=== PATIENT | female | born 1965 | race Caucasian/White ===

== ENCOUNTER 2016-11-13 14:10 | Emergency (ER) | payer MEDICAID ==
[~2016-11-13] VITALS: Ht 165.1 cm; Wt 102.0 kg
[2016-11-13] MEDS ORDERED: ALBU18HF INH (14:23)
[2016-11-13] MEDS ORDERED: MONT4GRA2 PO (14:23)
[2016-11-13] MEDS ORDERED: LORazepam 1MG TABLET PO ONE (14:30)
[2016-11-13 14:49] LABS: HEMOGLOBIN 13.7 g/dL (11.7-16.4)
[2016-11-13] MEDS ORDERED: LORazepam 1MG TABLET ONE (14:54)
[2016-11-13 15:16] LABS: BLOOD UREA NITROGEN 3 mg/dL (7-18)
[2016-11-13 15:24] LABS: IS PT STATUS REG ER OR PRE ER? YES
[2016-11-13 15:35] LABS: HCG UR OBC PASS
[2016-11-13 16:41] VITALS: BP 155/99
== END 2016-11-13 17:01 | disposition home or self-care (01) ==
LOC: ED 14:59
DX: J20.8 Acute bronchitis due to other specified organisms (principal); B97.89 Other viral agents as the cause of diseases classified elsewhere; I10 Essential (primary) hypertension
CPT/HCPCS: 36415; 71020; 80048; 81025; 82040; 84484; 85025; 93005

== ENCOUNTER 2017-07-28 10:31 | Inpatient (IN) | payer MEDICAID ==
[~2017-07-28] VITALS: Ht 165.1 cm; Wt 95.3 kg
[~2017-07-28 10:31] MED LIST: ALBU18HF INH; MONT4GRA2 PO
[2017-07-28 12:23] LABS: BASOPHILS # (AUTO) 0.04 x10^3/uL (0-0.1); BASOPHILS % (AUTO) 1 % (0-1); EOSINOPHILS # (AUTO) 0.14 x10^3/uL (0-0.4); EOSINOPHILS % (AUTO) 2 % (1-7); LYMPHOCYTES # (AUTO) 1.87 x10^3/uL (1-3.4); LYMPHOCYTES % (AUTO) 20 % (22-44); MD NO; MEAN CORPUSCULAR HEMOGLOBIN 30.9 pg (27.0-34.8); MEAN CORPUSCULAR HGB CONC 33.7 g/dL (32.4-35.8); MEAN CORPUSCULAR VOLUME 91.6 fL (80-100); MEAN PLATELET VOLUME 8.4 fL (7.4-10.4); MONOCYTES # (AUTO) 0.58 x10^3/uL (0.2-0.8); MONOCYTES % (AUTO) 6 % (2-9); NEUTROPHILS # (AUTO) 6.66 x10^3/uL (1.8-6.8); NEUTROPHILS % (AUTO) 72 % (42-75); PLATELET COUNT 331 x10^3/uL (130-400); RED BLOOD COUNT 4.82 x10^6/uL (3.82-5.3); RED CELL DISTRIBUTION WIDTH 13.2 % (9.6-15.2)
[2017-07-28] MEDS ORDERED: SODIUM CHLORIDE FLUSH 10ML SYR IVF ONE (12:30)
[2017-07-28] MEDS ORDERED: SODIUM CHLORIDE 0.9% 1,000ML IVBOLUS ONE (12:30)
[2017-07-28] MEDS ORDERED: ONDANSETRON 2MG/ML, 2ML IVPush ONE (12:30)
[2017-07-28] MEDS ORDERED: MORPHINE SULFATE 4 MG/ML, 1ML IVPush PRN (12:30)
[2017-07-28 12:31] LABS: ALANINE AMINOTRANSFERASE 51 U/L (12-78); ALBUMIN 3.4 g/dL (3.4-5.0); ANION GAP 9 mmol/L (5-15); CALCIUM 9.1 mg/dL (8.5-10.1); CHLORIDE 109 mmol/L (98-107); CREATININE 0.89 mg/dL (0.55-1.02)
[2017-07-28 12:36] LABS: ALKALINE PHOSPHATASE 105 U/L (45-117); BILIRUBIN,TOTAL 1.4 mg/dL (0.2-1.0); TOTAL PROTEIN 7.1 g/dL (6.4-8.2); TROPONIN I 0.016 ng/mL (0.000-0.045)
[2017-07-28] MEDS ORDERED: LISI-167 PO (12:55)
[2017-07-28] MEDS ORDERED: HYDR50TA13 PO (12:55)
[2017-07-28] MEDS ORDERED: MORPHINE SULFATE 4 MG/ML, 1ML ONE (13:23)
[2017-07-28] MEDS ORDERED: ONDANSETRON 2MG/ML, 2ML ONE (13:23)
[2017-07-28] MEDS ORDERED: OMNIPAQUE 350 MG/ML, 100ML BOTTLE ONE (14:07)
[2017-07-28] MEDS ORDERED: ASPIRIN 81 MG TABLET CHEW ONE (17:06)
[2017-07-28] MEDS ORDERED: FUROSEMIDE 20 MG/2 ML IV ONE (17:30)
[2017-07-28] MEDS ORDERED: ASPIRIN 81 MG TABLET CHEW PO ONE (17:30)
[2017-07-28] MEDS ORDERED: FUROSEMIDE 40 MG/4 ML ONE (17:32)
[2017-07-28] MEDS ORDERED: GABA100C PO (18:20)
[2017-07-28 18:35] VITALS: BP 132/97
[2017-07-28] MEDS ORDERED: BISACODYL 10 MG SUPP PR PRN (19:00)
[2017-07-28] MEDS ORDERED: ONDANSETRON 2MG/ML, 2ML IVPush PRN (19:00)
[2017-07-28] MEDS ORDERED: POLYETHYLENE GLYCOL 17 GM PACKET PO PRN (19:00)
[2017-07-28 19:28] LABS: FREE T4 (FREE THYROXINE) 1.32 ng/dL (0.76-1.46); THYROID STIMULATING HORMONE 1.43 mIU/L (0.358-3.740)
[2017-07-28] MEDS: ACETAMINOPHEN 325 MG TABLET PO PRN (20:13)
[2017-07-28] MEDS: POTASSIUM CHLORIDE 20 MEQ TAB.ER.PRT PO SCH (20:13)
[2017-07-28] MEDS: GABAPENTIN 100 MG CAPSULE PO SCH (20:13)
[2017-07-28] MEDS: HEPARIN 5,000 UNITS/ML, 1ML SQ SCH (20:14)
[2017-07-28] MEDS: CARVEDILOL 6.25 MG TABLET PO SCH (20:14)
[2017-07-28] MEDS: SODIUM CHLORIDE FLUSH 10ML SYR IVF SCH (20:14)
[2017-07-29 03:36] VITALS: BP 105/60
[2017-07-29] MEDS: ASPIRIN 81 MG TABLET EC PO SCH (04:41)
[2017-07-29] MEDS: CARVEDILOL 6.25 MG TABLET PO SCH ×2 (04:41→17:06)
[2017-07-29] MEDS: HEPARIN 5,000 UNITS/ML, 1ML SQ SCH ×3 (04:42→20:20)
[2017-07-29 05:37] LABS: BASOPHILS # (AUTO) 0.05 x10^3/uL (0-0.1); BASOPHILS % (AUTO) 1 % (0-1); EOSINOPHILS # (AUTO) 0.31 x10^3/uL (0-0.4); EOSINOPHILS % (AUTO) 5 % (1-7); LYMPHOCYTES % (AUTO) 30 % (22-44); MD NO; MEAN CORPUSCULAR HEMOGLOBIN 30.6 pg (27.0-34.8); MEAN CORPUSCULAR HGB CONC 33.7 g/dL (32.4-35.8); MEAN CORPUSCULAR VOLUME 90.7 fL (80-100); MEAN PLATELET VOLUME 8.6 fL (7.4-10.4); MONOCYTES # (AUTO) 0.38 x10^3/uL (0.2-0.8); MONOCYTES % (AUTO) 6 % (2-9); NEUTROPHILS # (AUTO) 3.64 x10^3/uL (1.8-6.8); NEUTROPHILS % (AUTO) 58 % (42-75); PLATELET COUNT 274 x10^3/uL (130-400); RED BLOOD COUNT 4.17 x10^6/uL (3.82-5.3); RED CELL DISTRIBUTION WIDTH 13.5 % (9.6-15.2)
[2017-07-29 05:41] LABS: CHLORIDE 109 mmol/L (98-107)
[2017-07-29 05:48] LABS: ALANINE AMINOTRANSFERASE 46 U/L (12-78); ALBUMIN 2.9 g/dL (3.4-5.0); ALKALINE PHOSPHATASE 91 U/L (45-117); ANION GAP 5 mmol/L (5-15); BILIRUBIN,TOTAL 0.9 mg/dL (0.2-1.0); CALCIUM 8.5 mg/dL (8.5-10.1); CHOL/HDL RATIO 3.5; CHOLESTEROL, TOTAL 144 mg/dL (140-239); CREATININE 0.94 mg/dL (0.55-1.02); HDL CHOL % 28 % (28-40); HDL CHOLESTEROL (DIRECT) 41 mg/dL (40-60); LDL CHOLESTEROL,CALCULATED 80 mg/dL (54-169); TRIGLYCERIDES 115 mg/dL (50-200); VLDL CHOLESTEROL 23 mg/dL (0-25)
[2017-07-29 08:45] VITALS: BP 108/75
[2017-07-29] MEDS: GABAPENTIN 100 MG CAPSULE PO SCH ×2 (09:00→20:20)
[2017-07-29] MEDS: LISINOPRIL 10 MG TABLET PO SCH (09:00)
[2017-07-29] MEDS: FUROSEMIDE 40 MG/4 ML IV SCH ×2 (09:10→17:05)
[2017-07-29] MEDS: SODIUM CHLORIDE FLUSH 10ML SYR IVF SCH ×2 (09:10→20:20)
[2017-07-29] MEDS: POTASSIUM CHLORIDE 20 MEQ TAB.ER.PRT PO SCH ×2 (09:10→17:05)
[2017-07-29] MEDS: hydrOXyzine 50MG TABLET PO SCH (09:11)
[2017-07-29] MEDS: SENNA/DOCUSATE TABLET PO SCH (09:11)
[2017-07-29] MEDS: SPIRONOLACTONE 25 MG TABLET PO SCH (12:26)
[2017-07-29 13:37] VITALS: BP 114/80
[2017-07-29] MEDS: ACETAMINOPHEN 325 MG TABLET PO PRN (13:44)
[2017-07-29 15:12] VITALS: BP 123/82
[2017-07-29 19:47] VITALS: BP 111/75
[2017-07-30] MEDS: ACETAMINOPHEN 325 MG TABLET PO PRN (01:17)
[2017-07-30 02:00] VITALS: BP 118/79
[2017-07-30] MEDS: CARVEDILOL 6.25 MG TABLET PO SCH ×2 (05:14→17:32)
[2017-07-30] MEDS: ASPIRIN 81 MG TABLET EC PO SCH (05:15)
[2017-07-30] MEDS: HEPARIN 5,000 UNITS/ML, 1ML SQ SCH ×3 (05:15→21:56)
[2017-07-30 06:11] LABS: CHLORIDE 108 mmol/L (98-107)
[2017-07-30 06:33] LABS: ANION GAP 10 mmol/L (5-15); CALCIUM 8.5 mg/dL (8.5-10.1); CREATININE 0.88 mg/dL (0.55-1.02)
[2017-07-30] MEDS: SODIUM CHLORIDE FLUSH 10ML SYR IVF SCH ×2 (07:53→21:00)
[2017-07-30] MEDS: GABAPENTIN 100 MG CAPSULE PO SCH ×2 (07:53→21:56)
[2017-07-30] MEDS: SENNA/DOCUSATE TABLET PO SCH (07:53)
[2017-07-30] MEDS: POTASSIUM CHLORIDE 20 MEQ TAB.ER.PRT PO SCH ×2 (07:53→17:32)
[2017-07-30] MEDS: FUROSEMIDE 40 MG/4 ML IV SCH (07:53)
[2017-07-30] MEDS: SPIRONOLACTONE 25 MG TABLET PO SCH (07:53)
[2017-07-30] MEDS: LISINOPRIL 10 MG TABLET PO SCH (07:54)
[2017-07-30] MEDS: hydrOXyzine 50MG TABLET PO SCH (07:54)
[2017-07-30 08:41] VITALS: BP 126/88
[2017-07-30] MEDS ORDERED: IBUPROFEN 200 MG TABLET PO PRN (09:00)
[2017-07-30 09:35] LABS: TROPONIN I < 0.015 ng/mL (0.000-0.045)
[2017-07-30 14:27] VITALS: BP 133/71
[2017-07-30 19:59] VITALS: BP 130/88
[2017-07-30] MEDS ORDERED: DIPHENHYDRAMINE 50 MG CAPSULE ONE (21:52)
[2017-07-30] MEDS ORDERED: DIPHENHYDRAMINE 25 MG CAPSULE PO PRN (22:00)
[2017-07-31] MEDS ORDERED: TEMAZEPAM 15 MG CAPSULE PO PRN (00:30)
[2017-07-31 05:39] VITALS: BP 144/101
[2017-07-31] MEDS: CARVEDILOL 6.25 MG TABLET PO SCH (05:43)
[2017-07-31] MEDS: HEPARIN 5,000 UNITS/ML, 1ML SQ SCH ×2 (05:43→10:11)
[2017-07-31] MEDS: ASPIRIN 81 MG TABLET EC PO SCH (05:43)
[2017-07-31] MEDS ORDERED: REGADENOSON 0.4 MG/5 ML SYRINGE ONE (08:31)
[2017-07-31] MEDS ORDERED: FUROSEMIDE 40 MG TABLET PO SCH (09:00)
[2017-07-31] MEDS: hydrOXyzine 50MG TABLET PO SCH (10:12)
[2017-07-31] MEDS: LISINOPRIL 10 MG TABLET PO SCH (10:12)
[2017-07-31] MEDS: GABAPENTIN 100 MG CAPSULE PO SCH (10:12)
[2017-07-31] MEDS: SPIRONOLACTONE 25 MG TABLET PO SCH (10:12)
[2017-07-31] MEDS: POTASSIUM CHLORIDE 20 MEQ TAB.ER.PRT PO SCH (10:13)
[2017-07-31] MEDS: SENNA/DOCUSATE TABLET PO SCH (10:13)
[2017-07-31] MEDS: SODIUM CHLORIDE FLUSH 10ML SYR IVF SCH (10:13)
[2017-07-31] MEDS ORDERED: FURO40TA6 PO (12:35)
[2017-07-31] MEDS ORDERED: LISI-167 PO (12:35)
[2017-07-31] MEDS ORDERED: SPIR25TA PO (12:35)
[2017-07-31] MEDS ORDERED: CARV6.2512 PO (12:35)
[2017-07-31 13:04] VITALS: BP 134/88
== END 2017-07-31 14:15 | disposition home or self-care (01) | DRG 291 ==
LOC: ED 12:21 → EDIP 17:17 → 5SO 19:07
PROVIDERS: ADMIT Surgery; ATTEND Internal Medicine
DX: I11.0 Hypertensive heart disease with heart failure (principal); I46.9 Cardiac arrest, cause unspecified; I42.9 Cardiomyopathy, unspecified; E44.1 Mild protein-calorie malnutrition; I50.21 Acute systolic (congestive) heart failure; I48.91 Unspecified atrial fibrillation; E66.9 Obesity, unspecified; Z68.35 Body mass index [BMI] 35.0-35.9, adult; F15.90 Other stimulant use, unspecified, uncomplicated; F17.210 Nicotine dependence, cigarettes, uncomplicated; F41.1 Generalized anxiety disorder; I34.0 Nonrheumatic mitral (valve) insufficiency; Z79.82 Long term (current) use of aspirin; Z82.3 Family history of stroke; Z82.49 Family history of ischemic heart disease and other diseases of the circulatory system; Z83.3 Family history of diabetes mellitus
CPT/HCPCS: 36415; 71010; 71275; 78452; 80048; 80053; 80061; 83690; 83735; 83880; 84439; 84443; 84484; 85025; 85379; 93005; 93017; 93306; 96361; 96374; 96375; J1644; J1940; J2405; J2785; Q9967; A9502; C9898; J7030; Q0163

== ENCOUNTER → 2017-08-21 | Outpatient (CLI) | payer MEDICAID ==
[~2017-08-21] MED LIST changes: +CARV6.2512 PO; +FURO40TA6 PO; +GABA100C PO; +HYDR50TA13 PO; +LISI-167 PO; +SPIR25TA PO
== END | disposition home or self-care (01) ==
LOC: CFH 13:56
PROVIDERS: ATTEND Internal Medicine Cardiovascular Disease
DX: I08.1 Rheumatic disorders of both mitral and tricuspid valves (principal); I10 Essential (primary) hypertension; I42.9 Cardiomyopathy, unspecified; F41.9 Anxiety disorder, unspecified
CPT/HCPCS: 93306

== ENCOUNTER 2017-11-27 14:56 | Emergency (ER) | payer MEDICAID ==
[~2017-11-27] VITALS: Ht 165.1 cm; Wt 105.0 kg
[2017-11-27] MEDS ORDERED: CYCL7.5T25 PO (15:12)
[2017-11-27 15:40] LABS: BASOPHILS # (AUTO) 0.04 x10^3/uL (0-0.1); BASOPHILS % (AUTO) 1 % (0-1); EOSINOPHILS # (AUTO) 0.55 x10^3/uL (0-0.4); EOSINOPHILS % (AUTO) 7 % (1-7); LYMPHOCYTES # (AUTO) 1.77 x10^3/uL (1-3.4); LYMPHOCYTES % (AUTO) 22 % (22-44); MD NO; MEAN CORPUSCULAR HEMOGLOBIN 29.8 pg (27.0-34.8); MEAN CORPUSCULAR HGB CONC 33.8 g/dL (32.4-35.8); MEAN PLATELET VOLUME 7.4 fL (7.4-10.4); MONOCYTES # (AUTO) 0.47 x10^3/uL (0.2-0.8); MONOCYTES % (AUTO) 6 % (2-9); NEUTROPHILS # (AUTO) 5.23 x10^3/uL (1.8-6.8); NEUTROPHILS % (AUTO) 65 % (42-75); PLATELET COUNT 299 x10^3/uL (130-400); RED BLOOD COUNT 4.41 x10^6/uL (3.82-5.3); RED CELL DISTRIBUTION WIDTH 14.6 % (9.6-15.2)
[2017-11-27 15:52] LABS: ALBUMIN 3.6 g/dL (3.4-5.0); CALCIUM 8.4 mg/dL (8.5-10.1); CHLORIDE 110 mmol/L (98-107)
[2017-11-27 16:00] LABS: ALANINE AMINOTRANSFERASE 41 U/L (12-78); ALKALINE PHOSPHATASE 72 U/L (45-117); ANION GAP 8 mmol/L (5-15); BILIRUBIN,TOTAL 0.3 mg/dL (0.2-1.0); TROPONIN I < 0.015 ng/mL (0.000-0.045)
[2017-11-27 16:26] VITALS: BP 116/74
== END 2017-11-27 16:28 | disposition home or self-care (01) ==
LOC: ED 16:15
DX: R07.89 Other chest pain (principal); F41.1 Generalized anxiety disorder; I11.0 Hypertensive heart disease with heart failure; I50.9 Heart failure, unspecified; Z87.891 Personal history of nicotine dependence
CPT/HCPCS: 36415; 71045; 80053; 84484; 85025; 93005; 99285

== ENCOUNTER 2018-01-30 06:34 | Emergency (ER) | payer MEDICAID ==
[~2018-01-30] VITALS: Ht 165.1 cm; Wt 109.8 kg
[~2018-01-30 06:34] MED LIST changes: +CYCL7.5T25 PO
[2018-01-30 07:44] LABS: BASOPHILS # (AUTO) 0.04 x10^3/uL (0-0.1); BASOPHILS % (AUTO) 1 % (0-1); EOSINOPHILS # (AUTO) 0.22 x10^3/uL (0-0.4); EOSINOPHILS % (AUTO) 4 % (1-7); LYMPHOCYTES # (AUTO) 1.81 x10^3/uL (1-3.4); LYMPHOCYTES % (AUTO) 32 % (22-44); MD NO; MEAN CORPUSCULAR HEMOGLOBIN 30.2 pg (27.0-34.8); MEAN CORPUSCULAR HGB CONC 34.5 g/dL (32.4-35.8); MEAN CORPUSCULAR VOLUME 87.8 fL (80-100); MONOCYTES # (AUTO) 0.48 x10^3/uL (0.2-0.8); MONOCYTES % (AUTO) 8 % (2-9); NEUTROPHILS # (AUTO) 3.18 x10^3/uL (1.8-6.8); NEUTROPHILS % (AUTO) 56 % (42-75); PLATELET COUNT 317 x10^3/uL (130-400); RED BLOOD COUNT 4.63 x10^6/uL (3.82-5.3); RED CELL DISTRIBUTION WIDTH 12.9 % (9.6-15.2)
[2018-01-30 08:13] LABS: ALANINE AMINOTRANSFERASE 86 U/L (12-78); ALBUMIN 3.8 g/dL (3.4-5.0); ANION GAP 5 mmol/L (5-15); CALCIUM 8.8 mg/dL (8.5-10.1); CHLORIDE 106 mmol/L (98-107); CREATININE 1.04 mg/dL (0.55-1.02)
[2018-01-30 08:17] LABS: ALKALINE PHOSPHATASE 69 U/L (45-117); BILIRUBIN,TOTAL 0.4 mg/dL (0.2-1.0); TOTAL PROTEIN 7.4 g/dL (6.4-8.2); TROPONIN I < 0.015 ng/mL (0.000-0.045)
[2018-01-30 09:05] VITALS: BP 138/82
== END 2018-01-30 09:07 | disposition home or self-care (01) ==
LOC: ED 07:45
DX: R74.8 Abnormal levels of other serum enzymes (principal); R16.0 Hepatomegaly, not elsewhere classified; I50.9 Heart failure, unspecified; E66.9 Obesity, unspecified; I11.0 Hypertensive heart disease with heart failure
CPT/HCPCS: 36415; 71046; 76700; 80053; 83880; 84484; 85025; 93005; 99285

== ENCOUNTER 2018-05-07 09:25 | Inpatient (IN) | payer MEDICAID ==
[~2018-05-07] VITALS: Ht 165.1 cm; Wt 106.9 kg
[2018-05-07] MEDS ORDERED: SODIUM CHLORIDE FLUSH 10ML SYR IVF ONE (10:00)
[2018-05-07] MEDS ORDERED: LORazepam 2 MG/ML, 1ML IVPush ONE (10:00)
[2018-05-07] MEDS ORDERED: ASPIRIN 81 MG TABLET CHEW PO ONE (10:00)
[2018-05-07] MEDS ORDERED: NITROGLYCERIN SINGLE TAB 0.4 MG SL ONE ×2 (10:00→10:09)
[2018-05-07] MEDS ORDERED: ASPIRIN 81 MG TABLET CHEW ONE (10:09)
[2018-05-07 10:10] LABS: BASOPHILS # (AUTO) 0.05 x10^3/uL (0-0.1); BASOPHILS % (AUTO) 1 % (0-1); EOSINOPHILS # (AUTO) 0.32 x10^3/uL (0-0.4); EOSINOPHILS % (AUTO) 5 % (1-7); LYMPHOCYTES # (AUTO) 1.79 x10^3/uL (1-3.4); LYMPHOCYTES % (AUTO) 30 % (22-44); MD NO; MEAN CORPUSCULAR HEMOGLOBIN 31.2 pg (27.0-34.8); MEAN CORPUSCULAR HGB CONC 34.3 g/dL (32.4-35.8); MEAN CORPUSCULAR VOLUME 90.9 fL (80-100); MEAN PLATELET VOLUME 7.3 fL (7.4-10.4); MONOCYTES # (AUTO) 0.45 x10^3/uL (0.2-0.8); MONOCYTES % (AUTO) 7 % (2-9); NEUTROPHILS # (AUTO) 3.45 x10^3/uL (1.8-6.8); NEUTROPHILS % (AUTO) 57 % (42-75); PLATELET COUNT 284 x10^3/uL (130-400); RED BLOOD COUNT 4.22 x10^6/uL (3.82-5.3)
[2018-05-07] MEDS ORDERED: LORazepam 2 MG/ML, 1ML ONE (10:10)
[2018-05-07 10:20] LABS: INTERNATIONAL NORMALIZED RATIO 0.97 (0.93-1.1)
[2018-05-07 10:23] LABS: ALANINE AMINOTRANSFERASE 85 U/L (12-78); ALBUMIN 3.3 g/dL (3.4-5.0); ANION GAP 7 mmol/L (5-15); CALCIUM 8.2 mg/dL (8.5-10.1); CHLORIDE 110 mmol/L (98-107); CREATININE 0.93 mg/dL (0.55-1.02)
[2018-05-07 10:27] LABS: ALKALINE PHOSPHATASE 69 U/L (45-117); BILIRUBIN,TOTAL 0.3 mg/dL (0.2-1.0); TOTAL PROTEIN 6.9 g/dL (6.4-8.2); TROPONIN I < 0.015 ng/mL (0.000-0.045)
[2018-05-07] MEDS ORDERED: OMNIPAQUE 350 MG/ML, 100ML BOTTLE ONE (11:45)
[2018-05-07] MEDS ORDERED: morphine SULFATE 10 MG/ML, 1ML IVPush PRN (12:30)
[2018-05-07] MEDS ORDERED: ACETAMINOPHEN 325 MG TABLET PO PRN (12:30)
[2018-05-07] MEDS: hydrOXyzine 50MG TABLET PO SCH (12:30)
[2018-05-07] MEDS ORDERED: ONDANSETRON ODT 4 MG PO PRN (12:30)
[2018-05-07 12:35] VITALS: BP 125/84
[2018-05-07] MEDS: ENOXAPARIN 40 MG/0.4 ML SQ SCH (13:37)
[2018-05-07 13:48] LABS: TROPONIN I < 0.015 ng/mL (0.000-0.045)
[2018-05-07 15:24] LABS: MICROSCOPIC NOT IND
[2018-05-07] MEDS ORDERED: ALBUTEROL SULFATE 2.5 MG/3 ML NPPB PRN (15:30)
[2018-05-07] MEDS: FUROSEMIDE 40 MG/4 ML IV SCH (16:59)
[2018-05-07 17:28] LABS: AMPHETAMINE SCREEN, URINE Positive (Negative); BARBITURATE SCREEN, URINE Positive (Negative); BENZODIAZEPINE SCREEN, URINE Negative (Negative); CANNABINOID SCREEN, URINE Negative (Negative); COCAINE SCREEN, URINE Negative (Negative); METHADONE SCREEN, URINE Negative (Negative); OPIATE SCREEN, URINE Negative (Negative)
[2018-05-07] MEDS: CARVEDILOL 6.25 MG TABLET PO SCH (17:59)
[2018-05-07 18:03] LABS: TROPONIN I < 0.015 ng/mL (0.000-0.045)
[2018-05-07] MEDS: GABAPENTIN 100 MG CAPSULE PO SCH (20:28)
[2018-05-07 20:33] VITALS: BP 103/70
[2018-05-08 00:54] VITALS: BP 108/74
[2018-05-08 05:05] LABS: BASOPHILS # (AUTO) 0.03 x10^3/uL (0-0.1); BASOPHILS % (AUTO) 1 % (0-1); EOSINOPHILS # (AUTO) 0.32 x10^3/uL (0-0.4); EOSINOPHILS % (AUTO) 6 % (1-7); LYMPHOCYTES # (AUTO) 1.95 x10^3/uL (1-3.4); LYMPHOCYTES % (AUTO) 35 % (22-44); MD NO; MEAN CORPUSCULAR HEMOGLOBIN 31.2 pg (27.0-34.8); MEAN CORPUSCULAR HGB CONC 34.3 g/dL (32.4-35.8); MEAN CORPUSCULAR VOLUME 91.2 fL (80-100); MEAN PLATELET VOLUME 7.2 fL (7.4-10.4); MONOCYTES # (AUTO) 0.44 x10^3/uL (0.2-0.8); MONOCYTES % (AUTO) 8 % (2-9); NEUTROPHILS # (AUTO) 2.88 x10^3/uL (1.8-6.8); NEUTROPHILS % (AUTO) 51 % (42-75); PLATELET COUNT 277 x10^3/uL (130-400); RED BLOOD COUNT 4.15 x10^6/uL (3.82-5.3); RED CELL DISTRIBUTION WIDTH 13.2 % (9.6-15.2)
[2018-05-08 05:17] LABS: ANION GAP 5 mmol/L (5-15); CALCIUM 8.4 mg/dL (8.5-10.1); CHLORIDE 108 mmol/L (98-107)
[2018-05-08] MEDS: CARVEDILOL 6.25 MG TABLET PO SCH (05:21)
[2018-05-08 05:22] LABS: CHOL/HDL RATIO 4.2; CHOLESTEROL, TOTAL 195 mg/dL (140-239); CREATININE 1.01 mg/dL (0.55-1.02); HDL CHOL % 24 % (28-40); HDL CHOLESTEROL (DIRECT) 46 mg/dL (40-60); LDL CHOLESTEROL,CALCULATED 101 mg/dL (54-169); LDL/HDL RATIO 2.2 (0.5-3.0); TRIGLYCERIDES 238 mg/dL (50-200); VLDL CHOLESTEROL 48 mg/dL (0-25)
[2018-05-08] MEDS: FUROSEMIDE 40 MG/4 ML IV SCH (07:57)
[2018-05-08 08:10] VITALS: BP 114/60
[2018-05-08] MEDS: GABAPENTIN 100 MG CAPSULE PO SCH (08:30)
[2018-05-08] MEDS: hydrOXyzine 50MG TABLET PO SCH (08:30)
[2018-05-08] MEDS ORDERED: SPIRONOLACTONE 25 MG TABLET PO SCH (09:00)
[2018-05-08] MEDS ORDERED: LISINOPRIL 5 MG TABLET PO SCH (09:00)
[2018-05-08] MEDS ORDERED: POTASSIUM CHLORIDE 20 MEQ TAB.ER.PRT PO SCH (09:00)
[2018-05-08] MEDS ORDERED: CYCLOBENZAPRINE 10 MG TABLET PO SCH (09:00)
[2018-05-08] MEDS ORDERED: LISI2.5T PO (09:37)
[2018-05-08] MEDS ORDERED: FURO20TA3 PO (09:37)
[2018-05-08] MEDS: ENOXAPARIN 40 MG/0.4 ML SQ SCH (12:00)
== END 2018-05-08 12:40 | disposition home or self-care (01) | DRG 292 ==
LOC: ED 11:39 → EDIP 11:40 → ED 12:12 → 5SO 12:42
PROVIDERS: ADMIT Hospitalist; ATTEND Hospitalist
DX: I11.0 Hypertensive heart disease with heart failure (principal); E44.1 Mild protein-calorie malnutrition; I42.9 Cardiomyopathy, unspecified; F41.9 Anxiety disorder, unspecified; R07.89 Other chest pain; I50.23 Acute on chronic systolic (congestive) heart failure; Z68.39 Body mass index [BMI] 39.0-39.9, adult; J70.4 Drug-induced interstitial lung disorders, unspecified; F15.90 Other stimulant use, unspecified, uncomplicated; R74.0 Nonspecific elevation of levels of transaminase and lactic acid dehydrogenase [LDH]; E83.51 Hypocalcemia; E66.01 Morbid (severe) obesity due to excess calories; Z82.3 Family history of stroke; Z83.3 Family history of diabetes mellitus; Z87.891 Personal history of nicotine dependence; Z79.899 Other long term (current) drug therapy; Z72.89 Other problems related to lifestyle
CPT/HCPCS: 36415; 71045; 71275; 80048; 80053; 80061; 80307; 81003; 83735; 83880; 84100; 84443; 84484; 85025; 85610; 93005; 93306; 96374; G0378; J1650; J1940; Q9967; J2060

== ENCOUNTER 2018-10-05 15:35 | Emergency (ER) | payer MEDICAID ==
[~2018-10-05] VITALS: Ht 162.6 cm; Wt 108.6 kg
[~2018-10-05 15:35] MED LIST changes: +FURO20TA3 PO; +GABA300C10 PO; +LISI2.5T PO
[2018-10-05] MEDS ORDERED: ACETAMINOPHEN 500 MG TABLET PO ONE (16:00)
[2018-10-05] MEDS ORDERED: IBUPROFEN 200 MG TABLET PO ONE (16:00)
[2018-10-05] MEDS ORDERED: SODIUM CHLORIDE FLUSH 10ML SYR IVF ONE (16:00)
[2018-10-05 16:30] LABS: BASOPHILS # (AUTO) 0.02 x10^3/uL (0-0.1); BASOPHILS % (AUTO) 0 % (0-1); EOSINOPHILS # (AUTO) 0.16 x10^3/uL (0-0.4); EOSINOPHILS % (AUTO) 3 % (1-7); LYMPHOCYTES # (AUTO) 0.72 x10^3/uL (1-3.4); LYMPHOCYTES % (AUTO) 12 % (22-44); MD NO; MEAN CORPUSCULAR HEMOGLOBIN 30.6 pg (27.0-34.8); MEAN CORPUSCULAR HGB CONC 33.9 g/dL (32.4-35.8); MEAN CORPUSCULAR VOLUME 90.1 fL (80-100); MEAN PLATELET VOLUME 8.1 fL (7.4-10.4); MONOCYTES # (AUTO) 0.56 x10^3/uL (0.2-0.8); MONOCYTES % (AUTO) 9 % (2-9); NEUTROPHILS # (AUTO) 4.82 x10^3/uL (1.8-6.8); NEUTROPHILS % (AUTO) 77 % (42-75); PLATELET COUNT 292 x10^3/uL (130-400); RED BLOOD COUNT 4.91 x10^6/uL (3.82-5.3); RED CELL DISTRIBUTION WIDTH 13.7 % (9.6-15.2)
[2018-10-05 16:41] LABS: ALANINE AMINOTRANSFERASE 177 U/L (12-78); ALBUMIN 4.4 g/dL (3.4-5.0); ANION GAP 9 mmol/L (5-15); CALCIUM 9.6 mg/dL (8.5-10.1); CHLORIDE 109 mmol/L (98-107); CREATININE 1.03 mg/dL (0.55-1.02)
[2018-10-05 16:45] LABS: ALKALINE PHOSPHATASE 96 U/L (45-117); BILIRUBIN,TOTAL 0.5 mg/dL (0.2-1.0); TOTAL PROTEIN 8.3 g/dL (6.4-8.2)
--- NOTE | 2018-10-05 19:08 | NUR ---
PT. TO ROOM FROM LOBBY.
[2018-10-05] MEDS ORDERED: ACETAMINOPHEN 500 MG TABLET ONE (19:15)
[2018-10-05] MEDS ORDERED: IBUPROFEN 600 MG TABLET ONE (19:15)
--- NOTE | 2018-10-05 19:35 | NUR ---
PT GIVEN PO FLUIDS
[2018-10-05 19:56] LABS: RAPID INFLUENZA A Negative (Negative); RAPID INFLUENZA B Negative (Negative)
[2018-10-05 20:42] LABS: MICROSCOPIC INDICATED
[2018-10-05 20:56] LABS: CULTURE INDICATED? YES
--- NOTE | 2018-10-05 21:04 | NUR ---
Patient/Caregiver given discharge instructions and they have confirmed that they understand the instructions. Patient ambulatory with steady gait.
[2018-10-05 21:05] VITALS: BP 162/85
== END 2018-10-05 21:08 | disposition home or self-care (01) ==
LOC: ED 21:02
DX: J20.9 Acute bronchitis, unspecified (principal); I11.0 Hypertensive heart disease with heart failure; I50.9 Heart failure, unspecified; F41.1 Generalized anxiety disorder; F32.9 Major depressive disorder, single episode, unspecified; F17.200 Nicotine dependence, unspecified, uncomplicated; E66.9 Obesity, unspecified; Z68.41 Body mass index [BMI] 40.0-44.9, adult; Z98.890 Other specified postprocedural states; Z87.01 Personal history of pneumonia (recurrent)
CPT/HCPCS: 36415; 71046; 80053; 81001; 83605; 83880; 84145; 85025; 87040; 87086; 87400; 93005; 99284

== ENCOUNTER 2018-12-26 06:05 | Emergency (ER) | payer MEDICAID ==
[~2018-12-26] VITALS: Ht 170.2 cm; Wt 90.0 kg
[2018-12-26] MEDS ORDERED: ASPIRIN 81 MG TABLET CHEW ONE (06:27)
[2018-12-26] MEDS ORDERED: SODIUM CHLORIDE FLUSH 10ML SYR IVF ONE (06:30)
[2018-12-26] MEDS ORDERED: ASPIRIN 81 MG TABLET CHEW PO ONE (06:30)
--- NOTE | 2018-12-26 06:34 | NUR ---
Pt presents to ed c/o cp starting this amx2 hours intermittent, tight, w/ associated sob. States hx of chf w/ c/o swelling in abd today. States hx of chf, but denies any mi's or cardiac stents. "i think i may be an anxiety attack, but i wanted to make sure." States hx of anxiety. All monitoring applied. Vss. Ekg done upon admit.
[2018-12-26 06:42] LABS: BASOPHILS # (AUTO) 0.07 x10^3/uL (0-0.1); BASOPHILS % (AUTO) 1 % (0-1); EOSINOPHILS # (AUTO) 0.65 x10^3/uL (0-0.4); EOSINOPHILS % (AUTO) 9 % (1-7); LYMPHOCYTES % (AUTO) 25 % (22-44); MD NO; MEAN CORPUSCULAR HEMOGLOBIN 29.9 pg (27.0-34.8); MEAN CORPUSCULAR HGB CONC 33.4 g/dL (32.4-35.8); MEAN CORPUSCULAR VOLUME 89.5 fL (80-100); MEAN PLATELET VOLUME 7.3 fL (7.4-10.4); MONOCYTES % (AUTO) 7 % (2-9); NEUTROPHILS # (AUTO) 3.99 x10^3/uL (1.8-6.8); NEUTROPHILS % (AUTO) 58 % (42-75); PLATELET COUNT 277 x10^3/uL (130-400); RED BLOOD COUNT 4.32 x10^6/uL (3.82-5.3); RED CELL DISTRIBUTION WIDTH 12.8 % (9.6-15.2)
--- NOTE | 2018-12-26 06:47 | NUR ---
Report to Deanna judd.
--- NOTE | 2018-12-26 06:49 | NUR ---
Report to Stacy judd.
[2018-12-26 06:52] LABS: ALANINE AMINOTRANSFERASE 30 U/L (12-78); ALBUMIN 3.3 g/dL (3.4-5.0); ANION GAP 5 mmol/L (5-15); CALCIUM 9.1 mg/dL (8.5-10.1); CHLORIDE 109 mmol/L (98-107); CREATININE 1.14 mg/dL (0.55-1.02)
[2018-12-26 06:57] LABS: ALKALINE PHOSPHATASE 60 U/L (45-117); BILIRUBIN,TOTAL 0.3 mg/dL (0.2-1.0); TOTAL PROTEIN 6.5 g/dL (6.4-8.2); TROPONIN I < 0.015 ng/mL (0.000-0.045)
--- NOTE | 2018-12-26 07:51 | NUR ---
ASSUMED CARE. MEDICATED PER ORDERS FOR ANXIETY. PT ON PHONE ARRANGING RIDE HOME
[2018-12-26 07:52] VITALS: BP 131/68
== END 2018-12-26 08:16 | disposition home or self-care (01) ==
LOC: ED 06:44
DX: R07.89 Other chest pain (principal); I11.0 Hypertensive heart disease with heart failure; I50.9 Heart failure, unspecified; F32.9 Major depressive disorder, single episode, unspecified; F17.200 Nicotine dependence, unspecified, uncomplicated
CPT/HCPCS: 36415; 71045; 80053; 80307; 83690; 83880; 84484; 85025; 93005; 99284

== ENCOUNTER 2019-07-06 04:49 | Emergency (ER) | payer MEDICAID ==
[~2019-07-06] VITALS: Ht 165.1 cm; Wt 108.4 kg
[~2019-07-06 04:49] MED LIST changes: +ALPR0.25 PO; +ARIP30TA4 PO; +CLON0.1T22 PO; +HYDR-826 PO; +MIRT45TA61 PO; +TOPI50TA8 PO
--- NOTE | 2019-07-06 05:27 | NUR ---
pt to room from lobby
--- NOTE | 2019-07-06 05:34 | NUR ---
PT PRESENTED WITH C/O FEVER, COUGH, BODY ACHES AND CONGESTION OVER PAST 2 DAYS NOT IMPROVED WITH OTC MEDS. MONITORS APPLIED, SIDERAIL SUP X2, CALL LIGHT WITHIN REACH
[2019-07-06] MEDS ORDERED: ONDANSETRON ODT 4 MG ONE (06:00)
[2019-07-06] MEDS ORDERED: ONDANSETRON ODT 4 MG PO ONE (06:00)
[2019-07-06 06:03] VITALS: BP 122/85
[2019-07-06 06:22] LABS: RAPID INFLUENZA A Negative (Negative); RAPID INFLUENZA B Negative (Negative)
== END 2019-07-06 06:45 | disposition home or self-care (01) ==
LOC: ED 06:31
DX: J02.8 Acute pharyngitis due to other specified organisms (principal); B34.9 Viral infection, unspecified; I11.0 Hypertensive heart disease with heart failure; I50.9 Heart failure, unspecified; F17.200 Nicotine dependence, unspecified, uncomplicated
CPT/HCPCS: 87400; 99283; Q0162

== ENCOUNTER 2019-10-30 04:26 | Emergency (ER) | payer SELFPAY ==
[~2019-10-30] VITALS: Ht 165.1 cm; Wt 110.0 kg
[~2019-10-30 04:26] MED LIST changes: -HYDR50TA13 PO; +HYDR50TA99 PO
[2019-10-30 04:56] VITALS: BP 156/100
--- NOTE | 2019-10-30 05:00 | NUR ---
FIRST CONTACT WITH PT. PT AMBULATORY ABOUT ROOM WO DIFFICULTY. PWD; NAD NOTED. PT REPORTS CONSTANT, ACHING, NON-RADIATING L SIDED CP X TWO DAYS. +DRY COUGH/MARROQUIN. PT ALSO ENDORSES WORSENING ORTHOPNEA X LAST NIGHT. HX OF CHF, "I DON'T LIKE TO TAKE MY WATER PILLS WHEN I'M WORKING BECAUSE THEY MAKE ME PEE A LOT AND I'VE BEEN AT WORK THE LAST FEW DAYS". PT REPORTS MARROQUIN AND HTN PRIOR TO ARRIVAL, TOOK A CARVEDILOL AND LISINOPRIL "JUST BEFORE I CAME IN". HYPERTENSIVE UPON INTIAL ASSESSMENT, DENIES MARROQUIN/CHANGES IN VISION/CHANGES IN URINATION. BP/SPO2/ECG MONITORING IN PLACE, NSR ON MONITOR. IV ESTABLISHED, LABS DRAWN.
[2019-10-30 05:26] LABS: BASOPHILS # (AUTO) 0.06 x10^3/uL (0-0.1); BASOPHILS % (AUTO) 1 % (0-1); EOSINOPHILS # (AUTO) 0.61 x10^3/uL (0-0.4); EOSINOPHILS % (AUTO) 7 % (1-7); LYMPHOCYTES # (AUTO) 2.49 x10^3/uL (1-3.4); LYMPHOCYTES % (AUTO) 29 % (22-44); MD NO; MEAN CORPUSCULAR HEMOGLOBIN 30.1 pg (27.0-34.8); MEAN CORPUSCULAR HGB CONC 33.5 g/dL (32.4-35.8); MEAN CORPUSCULAR VOLUME 89.8 fL (80-100); MEAN PLATELET VOLUME 8.5 fL (7.4-10.4); MONOCYTES # (AUTO) 0.49 x10^3/uL (0.2-0.8); MONOCYTES % (AUTO) 6 % (2-9); NEUTROPHILS # (AUTO) 4.82 x10^3/uL (1.8-6.8); NEUTROPHILS % (AUTO) 57 % (42-75); PLATELET COUNT 277 x10^3/uL (130-400); RED BLOOD COUNT 4.54 x10^6/uL (3.82-5.3); RED CELL DISTRIBUTION WIDTH 14.8 % (9.6-15.2)
[2019-10-30 05:31] LABS: ALBUMIN 3.7 g/dL (3.4-5.0); ANION GAP 6 mmol/L (5-15); CHLORIDE 113 mmol/L (98-107)
[2019-10-30 05:36] LABS: TROPONIN I < 0.015 ng/mL (0.000-0.045)
--- NOTE | 2019-10-30 05:56 | NUR ---
DC EDUCATION PROVIDED, PT DEMONSTRATES UNDERSTANDING. PT AMBULATED STEADILY TO DC WITH RN.
== END 2019-10-30 06:06 | disposition home or self-care (01) ==
LOC: ED 05:02
DX: R07.89 Other chest pain (principal); I11.0 Hypertensive heart disease with heart failure; I50.9 Heart failure, unspecified; E66.9 Obesity, unspecified
CPT/HCPCS: 36415; 71045; 80048; 82040; 83880; 84484; 85025; 93005; 99285

== ENCOUNTER 2020-03-31 06:05 | Emergency (ER) | payer MEDICAID ==
[~2020-03-31] VITALS: Ht 165.1 cm; Wt 109.9 kg
--- NOTE | 2020-03-31 06:42 | NUR ---
Pt reports waking up with SOB this morning, hx of CHF, states she hasn't been taking her "lasix for months because she didn't get prescription filled and other water pill because she can't take it at work." Pt o2 sat 96% on RA, breathing shallow and slightly tachypnic, pt requesting O2, 2L applied for comfort
[2020-03-31 06:57] LABS: BASOPHILS # (AUTO) 0.04 x10^3/uL (0-0.1); BASOPHILS % (AUTO) 1 % (0-1); EOSINOPHILS # (AUTO) 0.52 x10^3/uL (0-0.4); EOSINOPHILS % (AUTO) 7 % (1-7); LYMPHOCYTES # (AUTO) 2.44 x10^3/uL (1-3.4); LYMPHOCYTES % (AUTO) 34 % (22-44); MD NO; MEAN CORPUSCULAR HEMOGLOBIN 31.2 pg (27.0-34.8); MEAN CORPUSCULAR HGB CONC 34.1 g/dL (32.4-35.8); MEAN CORPUSCULAR VOLUME 91.6 fL (80-100); MEAN PLATELET VOLUME 8.1 fL (7.4-10.4); MONOCYTES # (AUTO) 0.61 x10^3/uL (0.2-0.8); MONOCYTES % (AUTO) 8 % (2-9); NEUTROPHILS # (AUTO) 3.65 x10^3/uL (1.8-6.8); NEUTROPHILS % (AUTO) 50 % (42-75); PLATELET COUNT 297 x10^3/uL (130-400); RED BLOOD COUNT 4.59 x10^6/uL (3.82-5.3); RED CELL DISTRIBUTION WIDTH 13.1 % (9.6-15.2)
[2020-03-31 07:09] LABS: ALANINE AMINOTRANSFERASE 44 U/L (12-78); ALBUMIN 3.4 g/dL (3.4-5.0); ANION GAP 6 mmol/L (5-15); CALCIUM 9.5 mg/dL (8.5-10.1); CHLORIDE 112 mmol/L (98-107)
[2020-03-31 07:14] LABS: ALKALINE PHOSPHATASE 86 U/L (45-117); BILIRUBIN,TOTAL 0.3 mg/dL (0.2-1.0); CREATININE 0.92 mg/dL (0.55-1.02); TOTAL PROTEIN 7.3 g/dL (6.4-8.2); TROPONIN I < 0.015 ng/mL (0.000-0.045)
--- NOTE | 2020-03-31 07:28 | NUR ---
FIRST CONTACT WITH PT, ASSUME CARE AT THIS TIME. PT AMBULATED TO THE RESTROOM WITH A STEADY GAIT.
--- NOTE | 2020-03-31 07:44 | NUR ---
Pt reports the she feels like she is breathing "funny". RR even and unlabored, 95% on room air. call light in reach.
[2020-03-31 08:47] VITALS: BP 124/74
== END 2020-03-31 08:49 | disposition home or self-care (01) ==
LOC: ED 07:22
DX: R06.00 Dyspnea, unspecified (principal); R07.9 Chest pain, unspecified; I11.0 Hypertensive heart disease with heart failure; I50.9 Heart failure, unspecified; E66.9 Obesity, unspecified
CPT/HCPCS: 36415; 71045; 80053; 83880; 84484; 85025; 93005; 99285

== ENCOUNTER 2020-07-02 20:29 | Emergency (ER) | payer SELFPAY ==
[~2020-07-02] VITALS: Ht 165.1 cm; Wt 113.4 kg
[2020-07-02 20:32] VITALS: BP 147/91
--- NOTE | 2020-07-02 20:36 | NUR ---
DRIVER MERCHANDISER: EKG DONE IN TRIAGE.
== END 2020-07-02 20:59 | disposition left against medical advice (07) ==
LOC: ED 20:50
DX: B34.9 Viral infection, unspecified (principal); R06.00 Dyspnea, unspecified; R05 Cough; R00.0 Tachycardia, unspecified
CPT/HCPCS: 87635; 93005; 99283; 99284

== ENCOUNTER 2020-08-04 03:13 | Emergency (ER) | payer MEDICAID ==
[~2020-08-04] VITALS: Ht 165.1 cm; Wt 110.0 kg
[2020-08-04 04:11] LABS: BASOPHILS % (AUTO) 1 % (0-1); EOSINOPHILS % (AUTO) 3 % (1-7); LYMPHOCYTES % (AUTO) 34 % (22-44); MEAN CORPUSCULAR HEMOGLOBIN 31.2 pg (27.0-34.8); MEAN CORPUSCULAR HGB CONC 34.9 g/dL (32.4-35.8); MEAN PLATELET VOLUME 7.9 fL (7.4-10.4); MONOCYTES % (AUTO) 7 % (2-9); NEUTROPHILS % (AUTO) 55 % (42-75); PLATELET COUNT 331 x10^3/uL (130-400); RED CELL DISTRIBUTION WIDTH 13.1 % (9.6-15.2)
--- NOTE | 2020-08-04 04:15 | NUR ---
Pt appears very anxious, RR 24-26. PCXR done.
[2020-08-04 04:18] LABS: MD NO
[2020-08-04 04:20] LABS: ALBUMIN 3.7 g/dL (3.4-5.0); ANION GAP 9 mmol/L (5-15); CALCIUM 9.3 mg/dL (8.5-10.1); CHLORIDE 111 mmol/L (98-107)
[2020-08-04 04:25] LABS: TROPONIN I < 0.015 ng/mL (0.000-0.045)
--- NOTE | 2020-08-04 04:32 | NUR ---
REPORT RECIEVED FROM ALYSSA SOLO
[2020-08-04 04:39] VITALS: BP 164/104
--- NOTE | 2020-08-04 05:12 | NUR ---
PT GIVEN D/C INSTRUCTIONS AND PRESCRIPTIONS. ALL QUESTIONS ANSWERED, AND PATIENT STATES FEELING BETTER.
== END 2020-08-04 05:15 | disposition home or self-care (01) ==
LOC: ED 03:33
DX: R06.00 Dyspnea, unspecified (principal); R00.2 Palpitations; Z76.0 Encounter for issue of repeat prescription; F17.210 Nicotine dependence, cigarettes, uncomplicated; I11.0 Hypertensive heart disease with heart failure; I50.9 Heart failure, unspecified; E66.01 Morbid (severe) obesity due to excess calories; Z68.41 Body mass index [BMI] 40.0-44.9, adult
CPT/HCPCS: 36415; 71045; 80048; 82040; 83735; 84443; 84484; 85025; 93005; 99285; 99406